=== PATIENT | female | born 1950 | race Caucasian/White ===

== ENCOUNTER 2018-04-06 07:24 | Emergency (ER) | payer BC, OTHER ==
[~2018-04-06] VITALS: Ht 157.5 cm; Wt 76.0 kg
[2018-04-06 07:27] VITALS: BP 182/64; PULSE 74; RESP 16; Ht 157.5 cm; Wt 76.0 kg
[2018-04-06] MEDS ORDERED: DEXAMETHASONE 10 MG/ML 1 ML INJ IM ONE (08:00)
[2018-04-06] MEDS ORDERED: KETOROLAC 60 MG INJ IM STA (08:00)
[2018-04-06] MEDS ORDERED: MED4DP PO (08:18)
[2018-04-06] MEDS ORDERED: OXYC-279 PO (08:18)
[2018-04-06] MEDS ORDERED: NAPR-985 PO (08:18)
--- NOTE | 2018-04-06 09:56 | ERD ---
ER Documentation Chief Complaint Chief Complaint pt bib self with c/o leg sided back to leg pain, recvd inject Thurs frm PMD HPI 68-year-old female presenting with pain to right side of leg. Patient was seen at PMD 2 days ago and had an injection for pain which alleviated her symptoms. She has pain running down her right buttock extending down the lower portion of her leg. Denies any numbness or tingling and denies any swelling. No recent trauma. Patient has been taking ibuprofen at home with no alleviation. Denies medical problems. NKDA. Surgical history is left wrist surgery and appendectomy. Social history denies ROS All systems reviewed and are negative except as per history of present illness. Medications Home Meds Active Scripts Naproxen* (Naprosyn*) 500 Mg Tablet, 500 MG PO BID PRN for PAIN AND/OR INFLAMMATION, #30 TAB Prov:MILES BARFIELD PA-C 04/06/18 Oxycodone HCl/Acetaminophen (Percocet 5-325 mg Tablet) 1 Each Tablet, 1 EACH PO DAILY, #7 TAB Prov:MILES BARFIELD PA-C 04/06/18 Methylprednisolone* (Medrol* DOSE PACK) 4 Mg/Dose-Pack Tab.ds.pk, 4 MG PO . DIRECTED, #1 PACKET Prov:MILES BARFIELD PA-C 04/06/18 Allergies Allergies: Coded Allergies: No Known Allergy (Unverified , 04/06/18) PMhx/Soc Hx Alcohol Use: No Hx Substance Use: No Hx Tobacco Use: No Smoking Status: Never smoker FmHx Family History: No diabetes, No coronary disease, No other Physical Exam Vitals Vital Signs Date Temp Pulse Resp B/P (MAP) Pulse Ox O2 O2 Flow FiO2 Time Delivery Rate 04/06/18 98.3 74 16 182/64 98 07:27 (103) Physical Exam GENERAL: The patient is well-appearing, well-nourished, in no acute distress CHEST: Clear to auscultation bilaterally. There are no rales, wheezes or rhonchi. HEART: Regular rate and rhythm. No murmurs, clicks, rubs or gallops. No S3 or S4. Tender to palpation over right paraspinous muscles extending down right buttock.BACK: No midline or flank tenderness. EXTREMITIES: Normal range of motion with mild tenderness extending down right buttock to right calf. No obvious swelling. No rashes. No erythema. Strength 5 out of 5. Normal range of motion. NEUROLOGIC: Alert and oriented. Cranial nerves II through XII intact. Motor strength in all 4 extremities with 5 out of 5 strength. Sensation grossly intact. Normal speech and gait. Babinski negative. DTR 2+ throughout. SKIN: There is no apparent rash or petechiae. The skin is warm and dry. Results 24 hrs Current Medications Medications Dose Sig/Adeline Start Time Status Last (Trade) Ordered Route PRN Stop Time Admin Dose Reason Admin 10 mg ONCE ONCE 04/06/18 DC 04/06/18 Dexamethasone IM 08:00 08:18 (Decadron) 04/06/18 08:01 Ketorolac 60 mg ONCE STAT 04/06/18 DC 04/06/18 Tromethamine IM 08:00 08:18 (Toradol) 04/06/18 08:01 Procedures/MDM MDM: 68-year-old female presenting with pain to right leg. I have low suspicion for acute fracture dislocation. I have low suspicion for infectious etiology. I have low suspicion for nerve deficit or vascular injury. Patient has inflammation of the sciatic nerve and will be treated with supportive m edications. I do not feel blood work or imaging was indicated. Patient is discharged with supportive medications and recommended to follow-up with primary care. Patient is told if symptoms change or worsen to return immediately to the ER. All questions answered at discharge Departure Diagnosis: Primary Impression: Pain of right leg Condition: Stable Patient Instructions: Back Pain W/ Sciatica Referrals: [facility] YOU HAVE RECEIVED A MEDICAL SCREENING EXAM AND THE RESULTS INDICATE THAT YOU DO NOT HAVE A CONDITION THAT REQUIRES URGENT TREATMENT IN THE EMERGENCY DEPARTMENT. FURTHER EVALUATION AND TREATMENT OF YOUR CONDITION CAN WAIT UNTIL YOU ARE SEEN IN YOUR DOCTORS OFFICE WITHIN THE NEXT 1-2 DAYS. IT IS YOUR RESPONSIBILITY TO MAKE AN APPOINTMENT FOR FOLOW-UP CARE. IF YOU HAVE A PRIMARY DOCTOR --you should call your primary doctor and schedule an appointment IF YOU DO NOT HAVE A PRIMARY DOCTOR YOU CAN CALL OUR PHYSICIAN REFERRAL HOTLINE AT IF YOU CAN NOT AFFORD TO SEE A PHYSICIAN YOU CAN CHOSE FROM THE FOLLOWING [facility] [id number] [facility]. [facility] [address] [facility] [facility] [address] [facility] [address] [facility]. [facility] [address] [facility]. [facility] [address] [facility] Hours: Mon-Fri 9:00 AM - 5:00 PM Additional Instructions: FOLLOW UP WITH YOUR PRIMARY CARE PHYSICIAN TOMORROW.Return to this facility if you are not improving as expected. MILES BARFIELD PA-C Apr 06, 2018 09:56
== END 2018-04-06 08:34 | disposition home or self-care (01) ==
LOC: FTE 07:24
DX: M79.604 Pain in right leg (principal)
CPT/HCPCS: 96372; 99284; J1100; J1885